=== PATIENT | female | born 1980 | race Caucasian/White ===

== ENCOUNTER → 2019-05-13 | Outpatient (CLI) | payer BC | LOC: MC.RAD 14:54 | DX: Z12.31 Encounter for screening mammogram for malignant neoplasm of breast (principal); N64.89 Other specified disorders of breast ==

== ENCOUNTER → 2019-05-21 | Outpatient (CLI) | payer BC | LOC: MC.RAD 14:00 | DX: N60.01 Solitary cyst of right breast (principal); N64.89 Other specified disorders of breast | CPT/HCPCS: G0279 ==

== ENCOUNTER → 2020-06-03 | Outpatient (CLI) | payer BC | LOC: MC.RAD 09:41 | DX: Z12.31 Encounter for screening mammogram for malignant neoplasm of breast (principal); Z01.419 Encounter for gynecological examination (general) (routine) without abnormal findings ==

== ENCOUNTER 2020-06-20 17:51 | Emergency (ER) | payer BC ==
[~2020-06-20] VITALS: Ht 157.5 cm; Wt 53.6 kg
[2020-06-20 17:56] VITALS: TEMP 98.4
[2020-06-20 20:12] VITALS: BP 121/74; PULSE 53
== END 2020-06-20 20:13 | disposition home or self-care (01) ==
LOC: COL.ER 17:51
DX: S52.125A Nondisplaced fracture of head of left radius, initial encounter for closed fracture (principal); W01.0XXA Fall on same level from slipping, tripping and stumbling without subsequent striking against object, initial encounter

== ENCOUNTER → 2021-07-20 | Outpatient (CLI) | payer OTHER | LOC: MC.RAD 13:09 | DX: Z12.31 Encounter for screening mammogram for malignant neoplasm of breast (principal) ==

== ENCOUNTER → 2022-09-05 | Outpatient (CLI) | payer OTHER | LOC: MC.RAD 11:25 | DX: Z12.31 Encounter for screening mammogram for malignant neoplasm of breast (principal) ==

== ENCOUNTER → 2023-09-07 | Outpatient (CLI) | payer BC | LOC: MC.RAD 08:11 | DX: Z12.31 Encounter for screening mammogram for malignant neoplasm of breast (principal) ==

== ENCOUNTER 2024-01-01 06:55 | Day surgery (SDC) | payer BC ==
[~2024-01-01] VITALS: Ht 157.5 cm; Wt 51.3 kg
[~2024-01-01 06:55] MED LIST: LR 1,000 ML IV SCH; Ondansetron 4 MG/2 ML VIAL IV PRN
[2024-01-01] MEDS ORDERED: DESYREL 50MG50 MG PO (07:30)
[2024-01-01] MEDS ORDERED: MAGNESIUM200 MG PO (07:31)
[2024-01-01] MEDS ORDERED: Lidocaine PF 2% (20 MG/ML) 5 ML VIAL ONE (08:01)
[2024-01-01 09:25] VITALS: BP 109/71; PULSE 72; TEMP 98.1
[2024-01-01 09:30] VITALS: BP 101/69; PULSE 70
[2024-01-01 10:07] VITALS: BP 112/86; PULSE 85; TEMP 98
--- NOTE | 2024-01-01 11:21 | NUR ---
0925- PT RETURNS FROM ENDO PROCEDURE VIA CART AND RN ASSIST TO GI [facility] 2. PT AMBULATES FROM CART TO RECLINER WITH ASSIST. MONITORS ON AND ALARMS SET. CALL LIGHT WITHIN REACH. REPORT RECEIVED FROM VENECIA RAPP. PT ALERT AND ORIENTED. PT REQUESTS FOOD AND DRINK. PT DENIES ANY PAIN OR NAUSEA. 929- PT TAKING FOOD AND DRINK WELL. NO COMPLICATIONS NOTED. 999- DISCHARGE INSTRUCTIONS GIVEN TO PT. ALL QUESTIONS ANSWERED. 101- PT TRANSFERRED OUT OF THE HOPITAL VIA WHEELCHAIR AND ASSIST TO PRIVATE VEHICLE DRIVEN BY BOYFRIEND.
== END 2024-01-01 10:10 | disposition home or self-care (01) ==
LOC: SDCO 06:55
DX: K92.1 Melena (principal); K57.30 Diverticulosis of large intestine without perforation or abscess without bleeding; K64.0 First degree hemorrhoids; Z90.49 Acquired absence of other specified parts of digestive tract
CPT/HCPCS: J2704; J7120